=== PATIENT | male | born 1970 | race Caucasian/White ===

== ENCOUNTER 2021-05-02 14:51 | Emergency (ER) | payer OTHER ==
[~2021-05-02] VITALS: Ht 177.8 cm; Wt 88.5 kg
[2021-05-02] MEDS ORDERED: ADDERALL 30 MG30 MG PO (15:26)
[2021-05-02] MEDS ORDERED: HYDROCODON-ACE1 EAC8 PO (18:28)
[2021-05-02 18:48] VITALS: BP 121/85
== END 2021-05-02 18:49 | disposition home or self-care (01) ==
LOC: M.ERS 14:51
DX: S22.20XA Unspecified fracture of sternum, initial encounter for closed fracture (principal); S50.02XA Contusion of left elbow, initial encounter; Z79.899 Other long term (current) drug therapy; W00.0XXA Fall on same level due to ice and snow, initial encounter; Y93.89 Activity, other specified; Y92.89 Other specified places as the place of occurrence of the external cause; Y99.8 Other external cause status